=== PATIENT | male | born 1945 | race African-American/Black ===

== ENCOUNTER 2017-10-05 19:14 | Emergency (ER) | payer SELFPAY ==
[~2017-10-05] VITALS: Ht 167.6 cm; Wt 57.0 kg
[2017-10-05] MEDS ORDERED: SODIUM CHLORIDE 0.9% 1,000 ML IV ONE (20:34)
[2017-10-05] MEDS ORDERED: ASPIRIN 81MG TABLET PO ONE (20:45)
[2017-10-05 21:03] LABS: BASOPHILS % 0.3 % (0.0-2.0); EOSINOPHILS % 0.6 % (0.0-5.0); HEMATOCRIT. 36.8 % (42.0-52.0); HEMOGLOBIN. 12.8 g/dL (14.0-18.0); LYMPHOCYTES % 7.1 % (20.0-50.0); MEAN CORPUSCULAR HEMOGLOBIN 32.3 pg (28.0-32.0); MEAN CORPUSCULAR VOLUME 92.5 fL (80.0-94.0); MEAN PLATELET VOLUME 7.8 fl (7.4-10.4); MONOCYTES % 7.4 % (2.0-8.0); NEUTROPHILS % 84.6 % (40.0-76.0); PLATELET 165 x1000/uL (130-400); RED BLOOD CELL COUNT 3.98 mill/uL (4.7-6.1)
[2017-10-05 21:08] LABS: PROTHROMBIN TIME 10.4 sec (9.4-11.6)
[2017-10-05 21:20] LABS: CHLORIDE 104 mEq/L (98-107); ETHANOL BLOOD < 10 mg/dL; TROPONIN I < 0.02 ng/mL (0.00-0.04)
[2017-10-05] MEDS ORDERED: CEFTRIAXONE 1 G PREMIX 50 ML IV ONE (21:30)
[2017-10-05] MEDS ORDERED: AZITHROMYCIN 500 MG in DEXT 5% WATER 250 ML IV ONE (21:30)
[2017-10-05] MEDS ORDERED: SODIUM CHLORIDE 0.9% 1,710 ML IV NR (23:15)
[2017-10-05] MEDS ORDERED: SODIUM CHLORIDE 0.9% 1000ML BAG (SEPSIS BOLUS) IV ONE (23:15)
[2017-10-05 23:53] LABS: CLARITY URINE CLOUDY (CLEAR); COLOR URINE YELLOW (YELLOW); KETONES URINE NEGATIVE (NEGATIVE); LEUKOCYTE ESTERASE URINE TRACE (NEGATIVE); NITRITE URINE NEGATIVE (NEGATIVE); OCCULT BLOOD URINE NEGATIVE (NEGATIVE); PH URINE 7.5 (4.5-8.0); PROTEIN URINE NEGATIVE (NEGATIVE); SPECIFIC GRAVITY URINE 1.018 (1.005-1.030)
[2017-10-06 00:46] LABS: *AMPHETAMINES SCREEN URINE NEGATIVE (NEGATIVE); *BARBITURATES SCREEN URINE NEGATIVE (NEGATIVE); *BENZODIAZEPINES SCREEN URINE NEGATIVE (NEGATIVE); *COCAINE SCREEN URINE NEGATIVE (NEGATIVE); CANNABINOID URINE SCREEN NEGATIVE (NEGATIVE); METHADONE URINE SCREEN NEGATIVE (NEGATIVE); OPIATES URINE SCREEN NEGATIVE (NEGATIVE); PHENCYCLIDINE URINE SCREEN NEGATIVE (NEGATIVE)
[2017-10-06] MEDS ORDERED: SODIUM CHLORIDE 0.45% 1,000 ML IV SCH ×2 (05:08→08:45)
[2017-10-06] MEDS ORDERED: IPRATROPIUM/ALBUTEROL 0.5-3(2.5)MG/3ML NEB INH PRN (05:15)
[2017-10-06] MEDS ORDERED: CLONIDINE 0.1MG TABLET PO PRN (05:15)
[2017-10-06] MEDS ORDERED: NA PHOS,M-B/NA PHOS,DI-BA ENEMA 118ML PR PRN ×2 (05:15→08:45)
[2017-10-06] MEDS ORDERED: LORAZEPAM 2MG/ML CPJ IV PRN ×2 (05:15→08:45)
[2017-10-06] MEDS ORDERED: GUAIFENESIN 200MG/10ML SUGAR FREE UDC PO PRN (05:15)
[2017-10-06] MEDS ORDERED: HYDROCODONE/ACETAMINOPHEN 5/325MG TABLET PO PRN (05:15)
[2017-10-06] MEDS ORDERED: ENOXAPARIN 40MG/0.4ML SYR SUBCUT SCH ×2 (05:15→08:45)
[2017-10-06] MEDS ORDERED: MAGNESIUM/ALUMINUM HYDROXIDE/SIMETHICONE 30ML UDC PO PRN (05:15)
[2017-10-06] MEDS ORDERED: ONDANSETRON HCL 4MG/2ML VIAL IV PRN (05:15)
[2017-10-06] MEDS ORDERED: HYDROMORPHONE HCL/PF 2MG/ML CPJ IV PRN ×2 (05:15→08:45)
[2017-10-06] MEDS ORDERED: ACETAMINOPHEN 325MG TABLET PO PRN (05:15)
[2017-10-06] MEDS ORDERED: DOCUSATE SODIUM 100MG CAPSULE PO PRN (05:15)
[2017-10-06] MEDS ORDERED: DIPHENHYDRAMINE 50MG/ML VIAL IV PRN (05:15)
[2017-10-06 06:03] LABS: CHLORIDE 112 mEq/L (98-107); TROPONIN I < 0.02 ng/mL (0.00-0.04)
[2017-10-06 07:51] VITALS: BP 120/74
[2017-10-06] MEDS ORDERED: ASPIRIN 81MG EC TABLET PO SCH ×2 (09:00→09:15)
== END 2017-10-06 08:35 | disposition left against medical advice (07) ==
LOC: ER 19:14 → EDBEDREQ 23:48 → ENRESERV 10-06 06:54 → CANRESERV 10-06 06:54 → ER 10-06 08:35 → CANBEDREQ 10-06 16:21
DX: G45.9 Transient cerebral ischemic attack, unspecified (principal); G93.41 Metabolic encephalopathy; E46 Unspecified protein-calorie malnutrition; R41.82 Altered mental status, unspecified; I10 Essential (primary) hypertension; Z79.82 Long term (current) use of aspirin
CPT/HCPCS: 36415; 70450; 71045; 80048; 80053; 80305; 81001; 82962; 83605; 83690; 83880; 84484; 85025; 85610; 87040; 87086; 87804; 93005; 96361; 96365; 96367; 99291; G0482; J0456; J0696; J7030; J7040; J7050; Z7610; J7060